=== PATIENT | male | born 1980 | race Caucasian/White ===

== ENCOUNTER 2021-07-21 09:28 | Emergency (ER) | payer OTHER, BC ==
[~2021-07-21] VITALS: Ht 185.4 cm; Wt 122.5 kg
[~2021-07-21 09:28] MED LIST: CEFUROXIME500 MG PO; FISH OIL 1,2001 EAC1 PO; IBUPROFEN800 MG PO; MULTI VITAMIN1 EACH PO; NORCO 5-325 TA1 EACH PO
== END 2021-07-21 11:15 | disposition home or self-care (01) ==
LOC: ED 09:28
DX: T15.01XA Foreign body in cornea, right eye, initial encounter (principal); Z79.899 Other long term (current) drug therapy; Y99.0 Civilian activity done for income or pay
CPT/HCPCS: 65222; 99283-25